=== PATIENT | male | born 1985 | race Caucasian/White ===

== ENCOUNTER 2024-05-25 07:00 | Outpatient (RCR) | payer BC, SELFPAY | END 2024-06-07 16:56 | disposition home or self-care (01) | LOC: PT 07:00 | PROVIDERS: Visit Provider Nurse Practitioner Family | DX: M54.41 Lumbago with sciatica, right side (principal) | CPT/HCPCS: 97012; 97014; 97110; 97140; 97163; 97530; 97535; G0283 ==